=== PATIENT | female | born 1985 | race Caucasian/White ===

== ENCOUNTER 2018-10-13 19:20 | Emergency (ER) | payer MEDICAID ==
[~2018-10-13] VITALS: Ht 162.6 cm; Wt 65.0 kg
[2018-10-13 19:36] VITALS: BP 143/95
== END 2018-10-13 21:55 | disposition home or self-care (01) ==
LOC: ER 19:21
DX: M54.5 Low back pain (principal); V89.2XXA Person injured in unspecified motor-vehicle accident, traffic, initial encounter; Y93.89 Activity, other specified; Y92.488 Other paved roadways as the place of occurrence of the external cause; Y99.8 Other external cause status
CPT/HCPCS: 72100; 99283

== ENCOUNTER 2025-08-13 19:23 | Emergency (ER) | payer SELFPAY ==
[~2025-08-13] VITALS: Ht 162.6 cm; Wt 80.7 kg
[2025-08-13 19:41] LABS: MEAN PLATELET VOLUME 6.9 FL (7.4-10.4); RED CELL DISTRIBUTION WIDTH 13.1 % (11.5-14.5)
--- NOTE | 2025-08-13 19:54 | RADIOLOGY REPORT ---
CHEST RADIOGRAPH Indication: CP Technique: Single frontal view of the chest was obtained Comparison: None FINDINGS: Lines and Tubes: None Lungs: No focal consolidation. Pleura: No effusion. No pneumothorax. Cardiomediastinal contours: Unremarkable Bones: No acute osseous abnormality. IMPRESSION: No acute cardiopulmonary disease.
[2025-08-13 20:04] LABS: CREATININE 0.81 MG/DL (0.40-0.90); PRO BRAIN NATRIURETIC PEPTIDE < 30 PG/ML (0-125); TOTAL CARBON DIOXIDE 26.8 MMOL/L (24-32); eCRCL 81 ML/MIN; eGFR 79 ML/MIN
[2025-08-13] MEDS ORDERED: magnesium sulf-water 2g/50mL 50 ML IV PRN (20:55)
[2025-08-13] MEDS ORDERED: potassium CL 10mEq/100ml bag 100 ML IV PRN (20:55)
[2025-08-13] MEDS ORDERED: magnesium sulf-water 4G/100mL 100 ML IV PRN (20:55)
[2025-08-13] MEDS ORDERED: potassium Cl 20mEq/100mL bag 100 ML IV PRN (20:55)
[2025-08-13] MEDS ORDERED: potassium Cl 40MEQ/270ML bag 250 ML IV PRN (20:55)
--- NOTE | 2025-08-13 21:16 | Physician Documentation ---
History of Present Illness ~ Chief Complaint: Chest Pain Stated Complaint: CP Time Seen by MD: 20:52 Primary Medical Doctor: PATIENT DENIES PMD HPI 40-year-old female presents to the ED with a complaint of intermittent chest pain and a sensation of" skipping a beat." She did not denies any current chest pain. States she has a history of lupus.. She also has a chronic tachycardia and hypertension. She states her family has cardiac history and she has a current bariatric nurse's name Dr. Edmondson. She denies any shortness of breath or current pain denies any nausea vomiting. She says she is able to tolerate exercise. 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 She denies any large amounts of caffeine, alcohol. States she does have difficulty sleeping Medication Reconciliation Allergies: Coded Allergies: No Known Allergies (Unverified , 10/13/12) Scheduled Potassium Chloride* (K-Dur*), 1 TAB PO DAILY Past Medical History Past Medical History: No Pertinent History Past Surgical History: noncontributory Alcohol Use: None Lives with: Family Lives In: Home Review of Systems All Other Systems at this time: Reviewed and Negative ROS As stated above in the HPI, otherwise all systems are reviewed and negative. Physical Exam Vital Signs: Temperature: 98.4, Heart Rate: 110, Respiratory Rate: 18, BP: 131/96, Pulse Oximetry: 99, Weight: 80.700 Physical Exam General: Alert, no apparent distress. Respiratory: Lungs clear, no respiratory distress. Cardiovascular: tachycardic and normal rhythm, no murmurs. Gastrointestinal: Soft, nontender, nondistended. Bowels sounds present. Neurologic: Oriented x4. Psychiatric: Normal mood and affect. Skin: Normal color, warm and dry. No edema, no ecchymosis. Progress Results/Orders Results/Orders Orders - ANDERSON HAMILTON NP Potassium Cl Sr Tablet (K-Dur Tablet) (08/13/25 20:55) Potassium Cl 40meq/270ml Bag (Potassium (08/13/25 20:55) Potassium Cl 20meq/100ml Bag (Potassium (08/13/25 20:55) Potassium Cl 10meq/100ml Bag (Potassium (08/13/25 20:55) Magnesium Sulf-Water 2g/50ml (Magnesium (08/13/25 20:55) Magnesium Sulf-Water 4g/100ml (Magnesium (08/13/25 20:55) Potassium Cl 40meq/1/2ns 520ml ([place] (08/13/25 20:55) K (08/13/25 23:36) Medications Received in ER Medications (Trade) Dose Ordered Sig/Swathi Route PRN Reason Start Time Stop Time Status Last Admin Dose Admin (K-DUR tablet) PRN PRN PO FOR K+ 3.5-4.4 & ORAL ROUTE OK 08/13/25 20:55 08/13/25 21:58 20 MEQ Potassium Chloride 520 ml @ 125 mls/hr PRN PRN IV PER REPLACEMENT ORDERS 08/13/25 20:55 08/13/25 21:36 125 MLS/HR Vital Signs 08/13/25 08/13/25 08/13/25 08/13/25 19:27 22:14 22:15 23:45 Temp 98.4 98.4 Pulse 110 84 92 Resp 18 14 16 B/P (MAP) 131/96 126/90 (102) 104/75 (85) Pulse Ox 99 95 97 O2 Flow Rate 0 0 08/13/25 23:45 B/P (MAP) Laboratory Tests Test 08/13/25 19:29 08/13/25 21:15 08/13/25 22:40 White Blood Count 6.5 Red Blood Count 4.54 Hemoglobin 14.3 Hematocrit 40.7 Mean Corpuscular Volume 89.6 Mean Corpuscular Hemoglobin 31.5 H Mean Corpuscular Hemoglobin Concent 35.2 Red Cell Distribution Width 13.1 Platelet Count 395 Mean Platelet Volume 6.9 L Neutrophils (%) (Auto) 58.1 Lymphocytes (%) (Auto) 31.8 Monocytes (%) (Auto) 8.7 Eosinophils (%) (Auto) 0.9 Basophils (%) (Auto) 0.5 Neutrophils # (Auto) 3.8 Lymphocytes # (Auto) 2.1 Monocytes # (Auto) 0.6 Eosinophils # (Auto) 0.1 Basophils # (Auto) 0.0 CBC Comment Sodium Level 138 Potassium Level 2.9 *L Chloride Level 99 Carbon Dioxide Level 26.8 Anion Gap 12 Blood Urea Nitrogen 13 Creatinine 0.81 Estimated GFR/1.73 m2 79 BUN/Creatinine Ratio 16.0 Glucose Level 92 Calcium Level 8.8 Magnesium Level 2.2 Troponin I High Sensitivity 5 4 < 4 L Pro-B-Type Natriuretic Peptide < 30 Albumin 3.9 Chemistry Comments Troponin I High Sens Percent Delta 20 Troponin I Hi Sens Absolute Change -1 Medical Decision Making Findings This patient presents with critically low potassium. However I do think this may be associated with her chronic diagnosis of lupus. We replenish her potassium and magnesium as needed. Her symptoms indicate palpitations which is also likely secondary to hypokalemia. She has been asymptomatic in her stay here in the ED. Other than low potassium her lab values are unremarkable. EKG was unremarkable. She does have ongoing tachycardia but she is well within her baseline. Patient has received multiple medications in order to obtain the appropriate levels of potassium. Discussed my findings with her and I am going to discharge her with an additional script of K-Dur 20 mEq daily. I emphasized the need to follow up with the her primary care and cardiology for further evaluation Differential Dx:Considerations: Include: angina, aortic dissection, chest wall pain, cholelithiasis, CHF, costochondritis, esophageal reflux/spasm, gastritis, herpes zoster, myocardial infarction, pericarditis, pleuritis, pancreatitis, pneumonia, pneumothorax, pulmonary embolus, other Departure Disposition: HOME / SELF CARE / HOMELESS Impression: Primary Impression: Hypokalemia Additional Impression: Palpitations Discharge Instructions: Palpitations Additional Instructions: Make sure to follow up with both your primary care and your bariatric nurse's regarding your health palpitations. As discussed I suspect that your low potassium could have been a contributing cause to your symptoms today Referrals: NO PRIMARY CARE PROVIDER (PCP) Prescriptions Potassium Chloride* (K-Dur*) 20 Meq Tab.prt.sr 1 TAB PO DAILY for 30 Days, #30 TAB Prov: ANDERSON HAMILTON NP 08/13/25 Education Educated: Patient Educated regarding: diagnosis Signature Scribe Signature: v Attestation: Scribed for Anderson Hamilton Np by Anderson Cooney NP . 08/13/25 23:41 ANDERSON HAMILTON NP Aug 13, 2025 21:16
[2025-08-13] MEDS: potassium Cl 40MEQ/1/2NS 520ml 520 ML IV PRN (21:36)
[2025-08-13] MEDS: potassium Cl 20 mEq SR tablet PO PRN (21:58)
[2025-08-13 22:14] VITALS: TEMP 98.4
[2025-08-13] MEDS ORDERED: POTA-207 PO (23:37)
[2025-08-14] MEDS: potassium Cl 20 mEq SR tablet PO STA (00:42)
[2025-08-14] MEDS: ondansetron 4mg rapidly disintigrating tab PO STA (00:42)
[2025-08-14 00:50] VITALS: BP 107/76; PULSE 94; RESP 16; O2SAT 98
--- NOTE | 2025-08-14 05:29 | ELECTROCARDIOGRAPH REPORT ---
[facility] Test Date: 2025-08-13 Test Time: 19:33:43 Pat Name: TIFFANY HICKMAN Department: EMERGENCY ROOM Room: Gender: F Packer Inspector: : 1985 Requested By: RICHARD PERKINS Order Number: [id number] Reading MD: Dr. Richard Perkins Measurements Intervals [place] Rate: 106 P: 82 VA: 147 QRS: 106 QRSD: 99 T: 34 QT: 348 QTc: 463 Interpretive Statements Sinus tachycardia with irregular rate Borderline right axis deviation Electronically Signed On 08-14-2025 5:36:[address] Richard Perkins Please click the below link to view image of tracing.
== END 2025-08-14 00:52 | disposition home or self-care (01) ==
LOC: ER 19:23
DX: E87.6 Hypokalemia (principal); R00.2 Palpitations; R06.02 Shortness of breath; I10 Essential (primary) hypertension; G47.9 Sleep disorder, unspecified
CPT/HCPCS: 36415; 71045; 80048; 83735; 83880; 84132; 84484; 85025; 93005; 96365; 96366; 99285; J3480; J7040